=== PATIENT | male | born 1990 ===

== ENCOUNTER 2018-11-17 15:39 | Emergency (ER) | payer SELFPAY ==
[~2018-11-17] VITALS: Ht 157.5 cm; Wt 102.1 kg
[2018-11-17] MEDS ORDERED: LABETALOL HCL 5 MG/ML 20ML VIAL IV STA (16:11)
[2018-11-17] MEDS ORDERED: LABETALOL HCL 20 MG/4 ML SYRINGE IV ONE (16:30)
[2018-11-17 16:31] LABS: BASOPHILS % 0.4 % (0.0-1.0); EOSINOPHILS # (AUTO) 0.1 (0.0-0.4); EOSINOPHILS % 0.6 % (0.0-6.0); HEMATOCRIT 49.6 % (38.2-49.6); HEMOGLOBIN 16.6 g/dL (14.0-18.0); LYMPHOCYTES # (AUTO) 1.2 (1.0-3.2); LYMPHOCYTES % 10.9 % (18.0-39.1); MEAN CORPUSCULAR HEMOGLOBIN 26.9 pg (28-32); MEAN CORPUSCULAR HGB CONC 33.5 g/dL (31-35); MEAN CORPUSCULAR VOLUME 80.5 fL (81-99); MONOCYTES # (AUTO) 0.6 (0.2-0.8); MONOCYTES % 5.7 % (4.4-11.3); NEUTROPHILS # (AUTO) 8.8 (2.1-6.9); NEUTROPHILS % 81.9 % (38.7-80.0); PLATELET COUNT 232 x10e3/uL (140-360); RED BLOOD COUNT 6.16 x10e6/uL (4.3-5.7); RED CELL DISTRIBUTION WIDTH 12.7 % (11.7-14.4)
[2018-11-17 16:36] LABS: AMPHETAMINES SCREEN,URINE NEGATIVE (NEGATIVE); BENZODIAZEPINES SCREEN,URINE NEGATIVE (NEGATIVE); PHENCYCLIDINE SCREEN,URINE NEGATIVE (NEGATIVE)
[2018-11-17 16:48] LABS: ALANINE AMINOTRANSFERASE 74 IU/L (0-55); ALBUMIN 4.6 g/dL (3.5-5.0); ALBUMIN/GLOBULIN RATIO 1.4 (0.8-2.0); ALKALINE PHOSPHATASE 59 IU/L (40-150); ANION GAP 17.5 mmol/L (8-16); BLOOD UREA NITROGEN 14 mg/dL (7-26); BUN/CREATININE RATIO 14 (6-25); CALCIUM 9.4 mg/dL (8.4-10.2); CARBON DIOXIDE 21 mmol/L (22-29); CHLORIDE 99 mmol/L (98-107); CREATININE, SERUM 1.03 mg/dL (0.72-1.25); EST GLOMERULAR FILTRATION RATE > 60 ML/MIN (60-); GLUCOSE 102 mg/dL (74-118); POTASSIUM 3.5 mmol/L (3.5-5.1); SODIUM 134 mmol/L (136-145)
[2018-11-17 17:08] LABS: THYROID STIMULATING HORMONE 1.492 uIU/mL (0.350-4.940)
[2018-11-17] MEDS ORDERED: METOPROLOL SUCCINATE 50 MG TAB XL PO ONE (17:30)
[2018-11-17] MEDS ORDERED: HYDROCHLOROTHIAZIDE 25 MG TAB PO ONE (17:30)
[2018-11-17 17:48] VITALS: BP 127/94
== END 2018-11-17 18:15 | disposition home or self-care (01) ==
LOC: ER 15:39
DX: R07.89 Other chest pain (principal); I10 Essential (primary) hypertension
CPT/HCPCS: 36415; 80053; 80307; 84443; 84484; 85025; 93005; 99283